=== PATIENT | female | born 1965 | race Two or more races ===

== ENCOUNTER → 2024-06-24 | Outpatient (CLI) | payer MEDICAID, SELFPAY ==
--- NOTE | 2024-06-24 09:15 | XR_ITS ---
Examination: Abdomen sonogram, complete Date and time of exam: June 24, 2024 0931 hours INDICATIONS: Cirrhosis diagnosis 2 years ago. Technique: Multiple real-time grayscale transabdominal sonographic images of the abdomen have been obtained. Findings: Absent gallbladder Common bile duct 0.4 cm Pancreatic head 3.2 cm Aorta not enlarged Liver 15.9 cm fatty infiltration no focal liver lesions Normal hepatopedal portal venous flow Patent IVC Right kidney 11.6 x 5.6 x 6.2 cm renal cortex 1.8 cm Left kidney 11.3 x 7.0 x 6.1 cm cortex 1.7 cm Mild bilateral renal parenchymal scar formation No hydronephrosis Spleen 13.4 cm IMPRESSION: Fatty liver no focal liver lesions Mild bilateral renal parenchymal scar formation Mild splenomegaly
[2024-06-24 09:31] LABS: Basophils # (Auto) 0.1 Thou/mm3 (0.0-0.2); Basophils % (Auto) 1 % (0-2.5); Eosinophils # (Auto) 0.2 Thou/mm3 (0.0-0.5); Eosinophils % (Auto) 2 % (0-10); Hematocrit 42.2 % (36.0-46.0); Hemoglobin 14.1 g/dL (12.0-16.0); Immature Granulocytes % (Auto) 0 % (0-0); Immature Granulocytes Auto 0.03 Thou/mm3 (0.00-0.00); Lymphocytes # (Auto) 1.9 Thou/mm3 (1.0-4.8); Lymphocytes % (Auto) 24 % (10-50); Mean Corpuscular HGB Conc 33.4 g/dl (31.0-37.0); Mean Corpuscular Hemoglobin 26.8 pg (25.0-35.0); Mean Corpuscular Volume 80 fL (80-100); Monocytes # (Auto) 0.8 Thou/mm3 (0.0-0.8); Monocytes % (Auto) 10 % (0-12); Neutrophils # (Auto) 5.2 Thou/mm3 (1.8-7.7); Neutrophils % (Auto) 64 % (37-80); Nucleated Red Blood Cell % 0 /100 WBC (0); Platelet Count 197 Thou/mm3 (140-440); RDW Standard Deviation 38.9 fL (36.4-46.3); Red Blood Count 5.27 Miln/mm3 (4.00-5.20); White Blood Count 8.3 Thou/mm3 (3.6-11.0)
[2024-06-24 09:33] LABS: Prothrombin Time 10.9 Seconds (9.0-12.2)
[2024-06-24 09:46] LABS: AFP Non-Pregnant < 1.30 ng/mL (<8.10)
[2024-06-24 09:51] LABS: Alanine Aminotransferase 33 U/L (10-49); Albumin, Serum 4.5 gm/dL (3.5-5.0); Alkaline Phosphatase 90 U/L (46-116); Aspartate Amino Transferase 22 U/L (0-34); Bilirubin,Direct 0.2 mg/dL (0.0-0.3); Bilirubin,Total 0.6 mg/dL (0.3-1.2); Sodium 137 mMol/L (136-145); Total Protein 7.1 gm/dL (5.7-8.2)
== END | disposition home or self-care (01) ==
LOC: CDIM 08:44 → COPL 08:47
PROVIDERS: PCP Family Medicine; Referring Provider Internal Medicine Gastroenterology; Visit Provider Radiology Diagnostic Radiology
DX: K76.0 Fatty (change of) liver, not elsewhere classified (principal); N28.89 Other specified disorders of kidney and ureter; R16.1 Splenomegaly, not elsewhere classified; R18.8 Other ascites; K74.60 Unspecified cirrhosis of liver
CPT/HCPCS: 36415; 76700; 80076; 82105; 83735; 84295; 85025; 85610

== ENCOUNTER → 2024-10-01 | Outpatient (CLI) | payer MEDICAID, SELFPAY ==
[2024-09-28 13:23] LABS: Blood Urea Nitrogen 11 mg/dL (9-23); Creatinine (Component) 0.8 mg/dL (0.6-1.3); eGFR > 60 See Note
--- NOTE | 2024-10-01 11:00 | XR_ITS ---
Examination: CT abdomen, without intravenous contrast. CT pelvis, without intravenous contrast. CT abdomen, with intravenous contrast. CT pelvis, with intravenous contrast. 2-D sagittal coronal reconstructions. Date and time of exam:October 01, 2024 1142 hours Comparison May 20, 2024 INDICATIONS: Right lower abdominal pain beginning one week ago CTDI: vol (mGy) 35.9 DLP: (mGycm) 2464 Technique: Multiple 3.0 axial images of the abdomen and pelvis without intravenous contrast, 3.0 mm slice thickness. Multiple 3.0 postcontrast images abdomen and pelvis also obtained, post intravenous injection 60 cc [id number] 2-D sagittal and coronal reconstructions. Low dose protocols were performed. One or more of the following dose reduction techniques were used; automated exposure control, adjustment of the mA and/or KV according to patient size, use of iterative reconstruction technique. Findings: Diffuse fatty infiltration throughout the liver, no focal liver lesions Absent gallbladder Spleen is not enlarged No pancreatic or adrenal mass No renal or ureteral calculi, no hydronephrosis Aorta normal size Normal appendix No bowel obstruction No diverticulitis Absent uterus No adnexal mass No bladder mass or bladder calculi Moderate osteopenia IMPRESSION: Fatty liver No renal or ureteral calculi, no hydronephrosis Normal appendix No bowel obstruction diverticulitis or free air
== END | disposition home or self-care (01) ==
LOC: SCAT 10:13
PROVIDERS: PCP Nurse Practitioner Family; Referring Provider Internal Medicine Gastroenterology; Visit Provider Internal Medicine Gastroenterology
DX: K76.0 Fatty (change of) liver, not elsewhere classified (principal); R10.11 Right upper quadrant pain; R10.31 Right lower quadrant pain; K21.9 Gastro-esophageal reflux disease without esophagitis
CPT/HCPCS: 36415; 74178; 82565; 84520; A4649; Q9967

== ENCOUNTER 2025-02-11 19:07 | Emergency (ER) | payer MEDICAID, SELFPAY ==
[2025-02-11 19:56] VITALS: BP 101/69; PULSE 96; RESP 18; TEMP 37; O2SAT 97
--- NOTE | 2025-02-11 20:08 | EDRME_ITS ---
Rapid Medical Screening Exam [facility] Arrival date/time: 02/11/25 19:07 59F with history of cholecystectomy, HTN, and DM presents to ED with 2 days of lower ab/pelvic pain that radiates to back and N/V. Patient denies diarrhea, and dysuria/hematuria. Patient states this doesn't feel like her gastritis. Chief Complaint: Nausea/Vomiting/Diarrhea Vital signs: Vital Signs Temperature 98.6 F 02/11/25 19:56 Pulse Rate 96 02/11/25 19:56 Respiratory Rate 18 02/11/25 19:56 Blood Pressure 101/69 02/11/25 19:56 Pulse Oximetry (%) 97 02/11/25 19:56 Oxygen Delivery Method Room Air 02/11/25 19:56
[2025-02-11] MEDS: ONDANSETRON ODT 4 MG TABRAP PO (20:13)
[2025-02-11] MEDS: NAPROXEN 250 MG TABLET 500 MG PO (20:25)
[2025-02-11 20:52] LABS: Basophils # (Auto) 0.1 Thou/mm3 (0.0-0.2); Basophils % (Auto) 1 % (0-2.5); Eosinophils # (Auto) 0.1 Thou/mm3 (0.0-0.5); Eosinophils % (Auto) 2 % (0-10); Hematocrit 45.6 % (36.0-46.0); Hemoglobin 15.8 g/dL (12.0-16.0); Immature Granulocytes % (Auto) 0 % (0-0); Immature Granulocytes Auto 0.03 Thou/mm3 (0.00-0.00); Lymphocytes # (Auto) 2.8 Thou/mm3 (1.0-4.8); Lymphocytes % (Auto) 30 % (10-50); Mean Corpuscular HGB Conc 34.6 g/dl (31.0-37.0); Mean Corpuscular Hemoglobin 27.7 pg (25.0-35.0); Mean Corpuscular Volume 80 fL (80-100); Monocytes % (Auto) 10 % (0-12); Neutrophils # (Auto) 5.2 Thou/mm3 (1.8-7.7); Neutrophils % (Auto) 57 % (37-80); Nucleated Red Blood Cell % 0 /100 WBC (0); Platelet Count 240 Thou/mm3 (140-440); RDW Standard Deviation 37.6 fL (36.4-46.3); Red Blood Count 5.71 Miln/mm3 (4.00-5.20); White Blood Count 9.2 Thou/mm3 (3.6-11.0)
[2025-02-11 20:56] LABS: Collection Type, Urine Clean Catch
[2025-02-11 21:06] LABS: Alanine Aminotransferase 44 U/L (10-49); Albumin, Serum 4.7 gm/dL (3.5-5.0); Albumin/Globulin Ratio 1.9 (1.2-2.2); Alkaline Phosphatase 71 U/L (46-116); Anion Gap 10 (7-16); Aspartate Amino Transferase 38 U/L (0-34); BUN/Creatinine Ratio 9 Ratio (12-20); Bilirubin,Total 0.6 mg/dL (0.3-1.2); Blood Urea Nitrogen 11 mg/dL (9-23); Carbon Dioxide 28.6 mMol/L (20.0-31.0); Chloride 98 mMol/L (98-107); Creatinine (Component) 1.2 mg/dL (0.6-1.3); Globulin 2.5 gm/dL (2.3-3.5); Glucose 99 mg/dL (74-106); Lipase 60 U/L (12-53); Osmolality,Calculated 273 (275-295); Sodium 137 mMol/L (136-145); Total Protein 7.2 gm/dL (5.7-8.2); eGFR 52 See Note
[2025-02-11 21:31] LABS: Bacteria,Urine Rare; Bilirubin,Urine Negative (Negative); Blood,Urine Negative (Negative); Clarity,Urine Turbid (Clear/Hazy); Color,Urine Yellow (Lt Yel-Yel); Culture Indicated,Urine Contaminated; Glucose, Urine 4+ (Negative); Hyaline Casts,Urine 1 /hpf (0-1); Ketones,Urine Negative (Negative); Leukocyte Esterase,Urine Positive (Negative); Nitrite,Urine Negative (Negative); Protein,Urine Trace (Neg - Trace); RBC,Urine 1 /hpf (0-3); Specific Gravity,Urine 1.027 (1.001-1.035); Squamous Epithelial Cell,Urine 26 /hpf (0-5); WBC,Urine 15 /hpf (0-5)
== END 2025-02-12 01:30 | disposition left against medical advice (07) ==
LOC: SERX 20:45
PROVIDERS: Physician Assistant; Emergency Provider Emergency Medicine; PCP Internal Medicine
DX: R11.2 Nausea with vomiting, unspecified (principal); R19.7 Diarrhea, unspecified; R10.2 Pelvic and perineal pain; Z53.29 Procedure and treatment not carried out because of patient's decision for other reasons
CPT/HCPCS: 36415; 80053; 81001; 83690; 85025; 99281; Q0162; A9270

== ENCOUNTER 2025-02-26 19:44 | Emergency (ER) | payer MEDICAID, SELFPAY ==
[2025-02-26 20:28] VITALS: BP 119/81; PULSE 75; RESP 18; TEMP 37.3; O2SAT 95
--- NOTE | 2025-02-26 20:56 | EDRME_ITS ---
<Statement entered by Richa Lim MD - 02/27/25 21:41> As co-signing physician, I was present and available for consult prn. I concur with the plan and care as documented by the midlevel provider. Rapid Medical Screening Exam RME Arrival date/time: 02/26/25 19:44 Chief Complaint: Abdominal Pain Time Seen by Provider: 02/26/25 20:48 Vital signs: Vital Signs Temperature 99.2 F 02/26/25 20:28 Pulse Rate 75 02/26/25 20:28 Respiratory Rate 18 02/26/25 20:28 Blood Pressure 119/81 02/26/25 20:28 Pulse Oximetry (%) 95 02/26/25 20:28 Oxygen Delivery Method Room Air 02/26/25 20:28 RME Narrative: 59-year-old female with a past medical history of diabetes and hypertension, as well as history of cholecystectomy, presents to the ED with complaint of epigastric abdominal pain as well as nausea, vomiting, diarrhea since yesterday. She has vomited twice today after she attempted to eat. She is unable to keep anything down. She had 3 bouts of diarrhea yesterday and 1 bout today. She denies any melena. She denies any fever or chills, cough or upper respiratory complaints. She denies any dysuria, frequency or flank pain. She has had this pain before but it goes away on its own. I have greeted and performed a focused initial assessment of this patient. A comprehensive ED assessment and evaluation of the patient, analysis of all test results, and completion of the medical decision making process will be conducted by additional ED providers.
--- NOTE | 2025-02-26 21:01 | XR_ITS ---
Examination: Abdomen sonogram, Limited Date and time of exam: February 26, 2025 2142 hours INDICATIONS: Epigastric pain today, history cholecystectomy Technique: Real-time fu scale transabdominal sonographic images of the upper abdomen obtained. Findings: Absent gallbladder Technologist describes mass in the gallbladder fossa 5 x 3.8 cm which is not well demonstrated on the images Common bile duct 0.9 cm no stones Pancreatic head 3.6 cm Liver 16.8 cm smooth contour Normal hepatopedal portal venous flow Patent IVC IMPRESSION: Technologist describes a mass in the gallbladder fossa which is not well demonstrated on these images
[2025-02-26] MEDS: ONDANSETRON ODT 4 MG TABRAP PO (21:07)
[2025-02-26 21:18] LABS: Basophils # (Auto) 0.0 Thou/mm3 (0.0-0.2); Basophils % (Auto) 0 % (0-2.5); Eosinophils # (Auto) 0.1 Thou/mm3 (0.0-0.5); Eosinophils % (Auto) 2 % (0-10); Hematocrit 42.7 % (36.0-46.0); Hemoglobin 15.3 g/dL (12.0-16.0); Immature Granulocytes Auto 0.07 Thou/mm3 (0.00-0.00); Lymphocytes # (Auto) 1.7 Thou/mm3 (1.0-4.8); Lymphocytes % (Auto) 19 % (10-50); Mean Corpuscular HGB Conc 35.8 g/dl (31.0-37.0); Mean Corpuscular Hemoglobin 27.3 pg (25.0-35.0); Mean Corpuscular Volume 76 fL (80-100); Monocytes # (Auto) 0.9 Thou/mm3 (0.0-0.8); Monocytes % (Auto) 10 % (0-12); Neutrophils # (Auto) 6.3 Thou/mm3 (1.8-7.7); Neutrophils % (Auto) 69 % (37-80); Nucleated Red Blood Cell # 0.00 Thou/mm3 (0.00-0.00); Nucleated Red Blood Cell % 0 /100 WBC (0); Platelet Count 231 Thou/mm3 (140-440); RDW Standard Deviation 35.6 fL (36.4-46.3); Red Blood Count 5.61 Miln/mm3 (4.00-5.20); White Blood Count 9.1 Thou/mm3 (3.6-11.0)
[2025-02-26 21:31] LABS: Collection Type, Urine Clean Catch
[2025-02-26 21:38] LABS: Bacteria,Urine 1+; Bilirubin,Urine Negative (Negative); Blood,Urine Trace (Negative); Clarity,Urine Clear (Clear/Hazy); Color,Urine Lt-Yellow (Lt Yel-Yel); Glucose, Urine 3+ (Negative); Ketones,Urine Negative (Negative); Leukocyte Esterase,Urine Positive (Negative); Nitrite,Urine Negative (Negative); PH,Urine 6.0 (5.0-7.0); Protein,Urine Negative (Neg - Trace); RBC,Urine 12 /hpf (0-3); Specific Gravity,Urine 1.007 (1.001-1.035); Squamous Epithelial Cell,Urine 12 /hpf (0-5); Urobilinogen,Urine Negative mg/dL (0.0-1.0); WBC,Urine 17 /hpf (0-5)
[2025-02-26 22:33] LABS: Alanine Aminotransferase 53 U/L (10-49); Albumin, Serum 4.8 gm/dL (3.5-5.0); Albumin/Globulin Ratio 1.8 (1.2-2.2); Alkaline Phosphatase 77 U/L (46-116); Anion Gap 10 (7-16); Aspartate Amino Transferase 50 U/L (0-34); BUN/Creatinine Ratio 7 Ratio (12-20); Bilirubin,Total 0.8 mg/dL (0.3-1.2); Blood Urea Nitrogen 7 mg/dL (9-23); Calcium 9.7 mg/dL (8.3-10.6); Calcium (Corrected) 9.7 mg/dL (8.5-10.1); Carbon Dioxide 27.3 mMol/L (20.0-31.0); Chloride 102 mMol/L (98-107); Creatinine (Component) 1.0 mg/dL (0.6-1.3); Globulin 2.7 gm/dL (2.3-3.5); Glucose 109 mg/dL (74-106); Lipase 46 U/L (12-53); Magnesium 1.8 mg/dL (1.6-2.6); Osmolality,Calculated 276 (275-295); Phosphorous 3.0 mg/dL (2.4-5.1); Potassium 3.7 mMol/L (3.4-5.1); Sodium 139 mMol/L (136-145); Total Protein 7.5 gm/dL (5.7-8.2); eGFR > 60 See Note
[2025-02-26 23:00] VITALS: BP 107/71; PULSE 82; RESP 16; TEMP 36.9; O2SAT 96
--- NOTE | 2025-02-26 23:07 | EDNOTE_ITS ---
ED Abdominal Pain RME/HPI General Chief Complaint: Abdominal Pain Stated complaint: ABD PAIN,N/V/D Time seen by provider: 02/26/25 20:48 Arrival date/time: 02/26/25 19:44 RME / HPI RME / HPI narrative: 59-year-old female with a past medical history of diabetes and hypertension, as well as history of cholecystectomy, presents to the ED with complaint of epigastric abdominal pain as well as nausea, vomiting, diarrhea since yesterday. She has vomited twice today after she attempted to eat. She is unable to keep anything down. She had 3 bouts of diarrhea yesterday and 1 bout today. She denies any melena. She denies any fever or chills, cough or upper respiratory complaints. She denies any dysuria, frequency or flank pain. She has had this pain before but it goes away on its own. I have greeted and performed a focused initial assessment of this patient. A comprehensive ED assessment and evaluation of the patient, analysis of all test results, and completion of the medical decision making process will be conducted by additional ED providers. DR. JEAN-BAPTISTE MAIN ED EVALUATION: 59 y/o female with Hx of Cirrhosis, Gall Bladder Disease, Obesity, and Gastritis presents to ED c/o intermittent epigastric abdominal pain, nausea, vomiting, and diarrhea x 1 day. Patient states that immediately after eating anything she gets the urge to use the restroom. Denies vomiting blood. Denies bloody or tarry stool. Patient has an endoscopy scheduled for 02/28/[address] [place] [address] Mott. Related Data Home Medications ?Medication ?Instructions ?Recorded ?Confirmed pioglitazone 30 mg tablet (Actos) 15 mg PO QDAY #0 tab s 08/09/16 01/05/18 losartan 50 mg tablet 25 mg PO BID 11/27/17 Previous Rx's ?Medication ?Instructions ?Recorded furosemide 20 mg tablet (Lasix) 20 mg PO QAM Fluid ove rload #7 tabs 11/04/22 potassium chloride 10 mEq 10 meq PO QDAY #7 tabs 11/04 tablet,extended release nirmatrelvir 300 mg (150 mg See Rx Instructions PO .CO MPLEX 06/07/23 x2)-ritonavir 100 mg tablet,dose #30 tabs pack (Paxlovid) ibuprofen 800 mg tablet 800 mg PO TID PRN pain #30 t abs 07/11/23 ondansetron 4 mg disintegrating 4 mg PO Q8H PRN nausea and 02/08/24 tablet vomiting #20 tabs Allergies Allergy/AdvReac Type Severity Reaction Status Date / Time morphine Allergy Severe Hives Verified 02/26/25 19:45 Review of Systems Review of Systems Systems Reviewed: All systems reviewed, normal except as documented Past Medical History Past Medical History CARDIAC: Positive Cardiac Disorders, Hypertension and Hypotension GASTROINTESTINAL: Positive Gastrointestinal Disorders (Gastritis), Cirrhosis, Gall Bladder Disease and Obesity REPRODUCTIVE: Positive Previous Pregnancies ENDOCRINE: Positive Endocrine Disorders and Diabetes Mellitus Type 2 PSYCHO/SOCIAL: Positive Anxiety Family History FAMILY HISTORY: Positive Family Cardiac Disorders Surgical History SURGICAL: Positive Hysterectomy and Section ED Exam Narrative Physical exam: GENERAL APPEARANCE: alert and oriented x 4, well-developed, well-nourished, no acute distress VITALS: All vitals were reviewed and the pulse ox is 96% on room air, which is normal according to my interpretation. HEENT: Normocephalic, atraumatic; pupils equal, round, reactive to light; EOMI; mucous membranes pink, moist; oropharynx clear NECK: Supple LUNGS: CTABL; no wheezes, no rales, no rhonchi HEART: Regular rate, regular rhythm; normal S1, S2; no murmurs ABDOMEN: non distended; normal BS; soft, mild epigastric tenderness, no guarding, no rebound; no masses, no organomegaly, no hernia BACK: no CVA tenderness EXTREMITIES: atraumatic; no edema NEUROLOGIC: awake; alert and oriented x4; cranial nerves II-XII grossly intact; no focal sensory or motor deficits PSYCHIATRIC: appropriate mood and affect SKIN: warm, dry, normal color; no rashes Course Quality Measures none Orders Category Date Time Status NPO STAT Care 02/26/25 20:59 Active US abdomen limited Stat Exams 02/26/25 21:01 Completed Amylase Stat Lab 02/26/25 21:10 Completed CBC Stat Lab 02/26/25 21:10 Completed Comprehensive Metabolic Panel Stat Lab 02/26/25 21:10 Completed Drug Screen,Urine Stat Lab 02/26/25 21:18 Completed Lipase Stat Lab 02/26/25 21:10 Completed Magnesium Stat Lab 02/26/25 21:10 Completed Phosphorous Stat Lab 02/26/25 21:10 Completed Urinalysis Stat Lab 02/26/25 21:18 Completed Urine Culture Stat Lab 02/26/25 21:18 Received Lidocaine 2% Viscous [Xylocaine 2% Viscous] Med 02/26/25 23:12 Discontinued 15 ml PO X1 ONE Ondansetron Odt [Zofran Odt] Med 02/26/25 20:59 Discontinued 4 mg PO X1 ONE mg Hyd/Al Hyd/Joselo Susp [Maalox Susp] Med 02/26/25 23:12 Discontinued 30 ml PO X1 ONE Reevaluation(s) Reevaluation #1: Patient states the pain medication helped. States she feels better and is ready to go home. Time: 23:58 Vital Signs Vital signs: Vital Signs Temperature 99.2 F 02/26/25 20:28 Pulse Rate 75 02/26/25 20:28 Respiratory Rate 18 02/26/25 20:28 Blood Pressure 119/81 02/26/25 20:28 Pulse Oximetry (%) 95 02/26/25 20:28 Oxygen Delivery Method Room Air 02/26/25 20:28 Abdominal Pain MDM MDM Narrative MDM Narrative:: Scribe Attestation: Selin Dobson, am scribing for and in the presence of Dr. Jean-Baptiste. Provider Notation: Although this document has been carefully reviewed, there may still be some phonetic and other typographical errors.? These errors are purely grammatical due to imperfections in the software program and should not be construed in any way to? compromise the substance of the patient's medical care during this visit. Patient data External records reviewed:: [facility] previous records (Reviewed prior ED records from 02/11/25. Patient was seen for Nausea with vomiting, unspecified.) Clinical information provided by:: patient Social determinants that could affect healthcare access:: none Patient has the following chronic illnesses:: Hypertension, Hypotension, Cirrhosis, Gall Bladder Disease, Obesity, Diabetes Mellitus Type 2, Anxiety How is presenting disease/condition affected by chronic disease/condition?: exacerbated by Evaluation data The following diagnostics were reviewed and interpreted by me:: lab results and radiology exam(s) Lab and/or radiology exams considered but not ordered:: None Interpretation Summary: RADIOLOGY Abdomen US: Findings: Absent gallbladder Technologist describes mass in the gallbladder fossa 5 x 3.8 cm which is not well demonstrated on the images Common bile duct 0.9 cm no stones Pancreatic head 3.6 cm Liver 16.8 cm smooth contour Normal hepatopedal portal venous flow Patent IVC IMPRESSION: Technologist describes a mass in the gallbladder fossa which is not well demonstrated on these images Medications / Prescriptions Medications or Prescriptions considered but not ordered:: None Medication administrations:: Medication Administration History Discontinued Medications Al Hydrox/Mg Hydrox/Simethicone (Mg Hyd/Al Hyd/Joselo (Maalox Reg) Susp 30 Ml Udc) 30 ml PO X1 ONE Stop: 02/26/25 23:13 Last Admin: 02/26/25 23:36 Dose: 30 ml Documented By: CCT Lidocaine HCl (Lidocaine Viscous 2% 15 Ml Udc) 15 ml PO X1 ONE Stop: 02/26/25 23:13 Last Admin: 02/26/25 23:36 Dose: 15 ml Documented By: CCT Ondansetron HCl (Ondansetron Odt 4 Mg Tabrap) 4 mg PO X1 ONE; Protocol Stop: 02/26/25 21:00 Last Admin: 02/26/25 21:07 Dose: 4 mg Documented By: See above Consultations Consultation(s) initiated? (list below): No Diagnosis Differential diagnosis abdominal pain: abdominal pain, acute appendicitis, calculus of kidney, constipation, diverticulitis, gastroenteritis, pancreatitis, small bowel obstruction and other (Fatty Liver, GERD, Gastritis) Most likely diagnosis given after review of the tests above:: Gastritis Admission Indicated Admission indicated?: not indicated Explain why admission is indicated or not indicated:: Patient does not meet admission criteria. Admission Request Was there a request for admission?: No Disposition Plan Disposition Plan: Discharge Discharge Attestation Discharge Attestation: The patient and all family members were given an opportunity to ask questions and understood the discharge instructions. Discharge instructions specifically effects, indications for sooner follow up or return to the emergency department, and the expected course of current diagnosis. Patient condition: Stable Discharge Plan Plan Patient Disposition: HOME (Self Care) Prescriptions/Referrals Prescriptions/Med Rec: No Action pioglitazone [Actos] 15 MG tablet 15 mg PO QDAY Qty: 0 losartan 50 mg Tablet 25 mg PO BID ibuprofen 800 mg tablet 800 mg PO TID PRN (Reason: pain) Qty: 30 0RF ondansetron 4 mg tablet,disintegrating 4 mg PO Q8H PRN (Reason: nausea and vomiting) Qty: 20 0RF furosemide [Lasix] 20 mg tablet 20 mg PO QAM Qty: 7 0RF potassium chloride 10 mEq tablet extended release 10 meq PO QDAY Qty: 7 0RF Paxlovid 300 mg (150 mg x 2)-100 mg tablets,dose pack See Rx Instructions .ROUTE .COMPLEX Qty: 30 0RF Rx Instructions: take TWO 150 mg tablets of nirmatrelvir with ONE 100 mg tablet of ritonavir twice daily for 5 days Referrals: No Primary/Family,Physician [Primary Care Provider] - In 1 week Problem List Clinical Impression: Gastritis Patient/Caregiver Discharge Instructions Education Materials: ED Gastritis (Adult) Print Language: Icelandic Stand Alone Forms: Katie Award Info., Patient Portal Info Letter
[2025-02-26] MEDS: MG HYD/AL HYD/SIME (Maalox Reg) SUSP 30 ML UDC PO (23:36)
[2025-02-26] MEDS: LIDOCAINE VISCOUS 2% 15 ML UDC PO (23:36)
[2025-02-27] LABS: Amphetamine/Methamp Scrn,U Negative (Negative); Barbiturate Screen,Urine Negative (Negative); Benzodiazepines Screen,Urine Negative (Negative); Benzoylecgonine Screen, Ur Negative (Negative); Fentanyl Screen,Urine Negative (Negative); Opiate Screen,Urine Negative (Negative); THC Screen,Urine Negative (Negative)
[2025-02-27 00:05] LABS: Amylase 60 U/L (30-118)
[2025-02-27 00:20] VITALS: BP 110/86; PULSE 88; RESP 16; TEMP 36.9; O2SAT 96
== END 2025-02-27 00:20 | disposition home or self-care (01) ==
PROVIDERS: Physician Assistant; Emergency Provider Emergency Medicine
DX: K29.70 Gastritis, unspecified, without bleeding (principal); K82.8 Other specified diseases of gallbladder
CPT/HCPCS: 36415; 76705; 80053; 80307; 81001; 82150; 83690; 83735; 84100; 85025; 87086; 99284; J3490; Q0162; A9270

== ENCOUNTER 2025-04-08 18:06 | Emergency (ER) | payer MEDICAID, SELFPAY ==
[2025-04-08 18:08] VITALS: BMI 34.4
[2025-04-08 19:32] VITALS: BP 106/78; PULSE 75; RESP 18; TEMP 36.8; O2SAT 95
--- NOTE | 2025-04-08 20:15 | EKG_ITS ---
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1965 Requested By: Tank Bo Order Number: [id number] Reading MD: Tank Bo Measurements Intervals [place] Rate: 82 P: -65 ID: [id number] QRS: -46 QRSD: 86 T: 42 QT: 359 QTc: 419 Interpretive Statements SINUS RHYTHM LOW QRS VOLTAGE [QRS DEFLECTION < 0.5/1.0 mV IN LIMB/CHEST LEADS] INFERIOR MYOCARDIAL INFARCTION , PROBABLY OLD [40+ ms Q WAVE AND/OR ST/T ABNORMALITY IN II/aVF] ANTEROLATERAL MYOCARDIAL INFARCTION , PROBABLY OLD [40+ ms Q WAVE IN I/aVL/V3-V6] Compared to ECG 07/11/2023 13:04:42 Low QRS voltage now present Myocardial infarct finding still present /store/S0/[id number].pdf
--- NOTE | 2025-04-08 20:51 | EDNOTE_ITS ---
ED Weakness RME/HPI General Chief complaint: Weakness Stated complaint: WEAKNESS AND SHIVERING TODAY x 30 MINUTES Time Seen by Provider: 04/08/25 20:50 Arrival date/time: 04/08/25 18:06 59F with history of cholecystectomy, HTN, and DM presents to ED with 1 hour of generalized fatigue and shivering. Patient states no recent changes in meds except started Ozempic 2 months ago (no recent dose changes). Patient threw up yesterday and hasn't been eating as much. Patient took her normal meds today. Patient is not currently nauseous. Limitations: no limitations Related Data Home Medications ?Medication ?Instructions ?Recorded ?Confirmed pioglitazone 30 mg tablet (Actos) 15 mg PO QDAY #0 tab s 08/09/16 01/05/18 losartan 50 mg tablet 25 mg PO BID 11/27/17 Previous Rx's ?Medication ?Instructions ?Recorded furosemide 20 mg tablet (Lasix) 20 mg PO QAM Fluid ove rload #7 tabs 11/04/22 potassium chloride 10 mEq 10 meq PO QDAY #7 tabs 11/04 tablet,extended release nirmatrelvir 300 mg (150 mg See Rx Instructions PO .CO MPLEX 06/07/23 x2)-ritonavir 100 mg tablet,dose #30 tabs pack (Paxlovid) ibuprofen 800 mg tablet 800 mg PO TID PRN pain #30 t abs 07/11/23 ondansetron 4 mg disintegrating 4 mg PO Q8H PRN nausea and 02/08/24 tablet vomiting #20 tabs Allergies Allergy/AdvReac Type Severity Reaction Status Date / Time morphine Allergy Severe Hives Verified 04/08/25 18:09 Review of Systems Review of Systems Systems Reviewed: All systems reviewed, normal except as documented Constitutional Constitutional: Reports system reviewed and no additional complaints, except as documented, Reports as per HPI, Denies fever(s), Denies headache(s) and Reports weakness ENT Ears, Nose, Mouth, and Throat: Denies disequilibrium and Denies headache(s) Cardiovascular Cardiovascular: Reports system reviewed and no additional complaints, except as documented, Denies chest pain and Denies dyspnea Respiratory Respiratory: Reports system reviewed and no additional complaints, except as documented, Denies cough and Denies dyspnea Gastrointestinal Gastrointestinal: Reports system reviewed and no additional complaints, except as documented, Denies abdominal pain, Denies nausea and Denies vomiting Neurologic Neurologic: Reports system reviewed and no additional complaints, except as documented, Denies confusion, Denies disequilibrium, Denies headache(s) and Reports weakness Psychiatric Psychiatric: Denies confusion Past Medical History Past Medical History NEUROLOGIC: Negative Neurological Disorders or Seizures CARDIAC: Positive Cardiac Disorders, Hypertension and Hypotension; Negative Congestive Heart Failure RESPIRATORY: Negative Chronic Obstructive Pulmonary Disease (COPD) or Asthma GASTROINTESTINAL: Positive Gastrointestinal Disorders (Gastritis), Cirrhosis, Gall Bladder Disease and Obesity GENITOURINARY: Negative Renal Disease REPRODUCTIVE: Positive Previous Pregnancies MUSCULOSKELETAL: Negative Musculoskeletal Disorders ENDOCRINE: Positive Endocrine Disorders and Diabetes Mellitus Type 2; Negative Diabetes Mellitus Type 1 HEMATOLOGIC: Negative Blood Disorders or Sickle Cell Disease PSYCHO/SOCIAL: Positive Anxiety OTHER HISTORY: Negative Autoimmune Disease, Blood Transfusions, Blood Transfusion Reaction, Anesthesia Reactions or Cancer Family History FAMILY HISTORY: Positive Family Cardiac Disorders Surgical History SURGICAL: Positive Hysterectomy and Section Social History SMOKING STATUS: Never smoker ED Exam General Limitations: Present no limitations General appearance: Present alert and in no apparent distress Head Head exam: Present atraumatic Eye Eye exam: Present normal appearance, PERRL and EOMI ENT ENT exam: Present normal exam, normal oropharynx and mucous membranes moist Neck Neck exam: Present normal inspection, full ROM and trachea midline Chest Chest inspection: Present normal inspection and symmetric chest wall rise Respiratory Respiratory exam: Present normal lung sounds bilaterally Cardiovascular Cardiovascular exam: Present regular rate, normal rhythm and normal heart sounds Abdominal Exam Abdominal exam: Present soft and normal bowel sounds Extremities Exam Extremities exam: Present normal inspection and full ROM Back Exam Back exam: Present normal inspection and full ROM Neurological Exam Neurological exam: Present alert, oriented X3 and CN II-XII intact Psychiatric Psychiatric exam: Present normal affect and normal mood Skin Skin exam: Present warm, dry, intact and normal color Course Quality Measures none Orders Category Date Time Status Blood glucose [Bedside Blood Glucose] NOW Care 04/08/25 20:15 Completed EKG (ED ONLY) *Do not use* NOW Care 04/08/25 20:15 Completed EKG (ED Only) Stat Exams 04/08/25 20:15 Draft Vital Signs Vital signs: Vital Signs Temperature 98.3 F 04/08/25 19:32 Pulse Rate 75 04/08/25 19:32 Respiratory Rate 18 04/08/25 19:32 Blood Pressure 106/78 04/08/25 19:32 Pulse Oximetry (%) 95 04/08/25 19:32 Oxygen Delivery Method Room Air 04/08/25 19:32 O2 at 95% on RA and WNLs Weakness MDM Narrative MDM Narrative:: 59F with history of cholecystectomy, HTN, and DM presents to ED with 1 hour of generalized fatigue and shivering. Patient states no recent changes in meds except started Ozempic 2 months ago (no recent dose changes). Patient threw up yesterday and hasn't been eating as much. Patient took her normal meds today. Patient is not currently nauseous. Physical exam reveals tired-appearing individual. Speech normal. However, patient is afebrile, calm, and alert. EKG is NSR. Initial BS 36. Because patient was alert and able to talk, patient was given some juice and crackers. Patient has been eating and repeat BS is 127. Patient felt better. Repeat BS 150. 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 Patient data External records reviewed:: [facility] previous records Clinical information provided by:: patient Social determinants that could affect healthcare access:: none Patient has the following chronic illnesses:: cholecystectomy, HTN, and DM How is presenting disease/condition affected by chronic disease/condition?: exacerbated by Evaluation data The following diagnostics were reviewed and interpreted by me:: lab results and EKG tracing(s) Lab and/or radiology exams considered but not ordered:: ordered Interpretation Summary: above Medications / Prescriptions Medications or Prescriptions considered but not ordered:: not ordered Medication administrations:: n/a Consultations Consultation(s) initiated? (list below): No Diagnosis Weakness Differential Diagnosis: acute myocardial infarction, anemia, hypoglycemia, hypothyroidism, rhabdomyolysis, sepsis and dehydration Most likely diagnosis given after review of the tests above:: hypoglycemia Admission Indicated Admission indicated?: not indicated Admission Request Was there a request for admission?: No Disposition Plan Disposition Plan: Discharge Discharge Attestation Discharge Attestation: The patient and all family members were given an opportunity to ask questions and understood the discharge instructions. Discharge instructions specifically effects, indications for sooner follow up or return to the emergency department, and the expected course of current diagnosis. Patient condition: Stable Discharge Plan Plan Patient Disposition: HOME (Self Care) Discharge Disposition comment: Stable Prescriptions/Referrals Prescriptions/Med Rec: No Action pioglitazone [Actos] 15 MG tablet 15 mg PO QDAY Qty: 0 losartan 50 mg Tablet 25 mg PO BID ibuprofen 800 mg tablet 800 mg PO TID PRN (Reason: pain) Qty: 30 0RF ondansetron 4 mg tablet,disintegrating 4 mg PO Q8H PRN (Reason: nausea and vomiting) Qty: 20 0RF furosemide [Lasix] 20 mg tablet 20 mg PO QAM Qty: 7 0RF potassium chloride 10 mEq tablet extended release 10 meq PO QDAY Qty: 7 0RF Paxlovid 300 mg (150 mg x 2)-100 mg tablets,dose pack See Rx Instructions .ROUTE .COMPLEX Qty: 30 0RF Rx Instructions: take TWO 150 mg tablets of nirmatrelvir with ONE 100 mg tablet of ritonavir twice daily for 5 days Problem List Clinical Impression: Hypoglycemia Patient/Caregiver Discharge Instructions Education Materials: Hypoglycemia Steps, ED Hypoglycemia Oral Diabetic ... Print Language: Yoruba Stand Alone Forms: Patient Portal Info Letter PA/ASSURANCE MANAGER INSURANCE Supervising Physician YEN/KRISTINA Supervising Physician: Dr. Boucher
[2025-04-08 22:06] VITALS: BP 110/72; PULSE 76; RESP 18; TEMP 36.8; O2SAT 98
== END 2025-04-08 22:10 | disposition home or self-care (01) ==
LOC: SERX 22:19
PROVIDERS: Emergency Provider Emergency Medicine
DX: E11.649 Type 2 diabetes mellitus with hypoglycemia without coma (principal); I10 Essential (primary) hypertension; Z79.85 Long-term (current) use of injectable non-insulin antidiabetic drugs; Z90.49 Acquired absence of other specified parts of digestive tract
CPT/HCPCS: 93005; 99283

== ENCOUNTER 2025-06-25 15:16 | Emergency (ER) | payer MEDICAID, SELFPAY ==
--- NOTE | 2025-06-25 15:21 | EKG_ITS ---
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
[2025-06-25 15:28] VITALS: BP 106/72; PULSE 81; RESP 20; TEMP 36.8; O2SAT 95
--- NOTE | 2025-06-25 15:32 | XR_ITS ---
Exam: Chest 1 view, AP Date and time of exam: 06/25/2025, 3:52 p.m. Comparison: 01/12/2024, INDICATION: Chest pain Findings: Normal heart size. No mediastinal adenopathy. No acute fracture No pulmonary edema or pneumonia. Impression: No active disease.
--- NOTE | 2025-06-25 15:33 | EDNOTE_ITS ---
ED Chest Pain RME/HPI General Chief Complaint: Chest Pain Stated Complaint: SOB, chest pain since 1200 Time Seen by Provider: 06/25/25 15:21 Arrival date/time: 06/25/25 15:16 59-year-old female patient with a significant history of hypertension, diabetes mellitus, leaky valve, came in for evaluation regarding left-sided chest pain. Onset of symptoms since 4 hours prior to ER visit sudden onset of left-sided chest pain, described as stabbing pain, severity mild. Denies any shortness of breath. Denies any radiation of the pain. Denies any other complaints. Patient is awaiting to be seen by [facility] regarding her leaky valve. Denies any swelling to the leg. Related Data Home Medications ?Medication ?Instructions ?Recorded ?Confirmed pioglitazone 30 mg tablet (Actos) 15 mg PO QDAY #0 tab s 08/09/16 01/05/18 losartan 50 mg tablet 25 mg PO BID 11/27/17 Previous Rx's ?Medication ?Instructions ?Recorded furosemide 20 mg tablet (Lasix) 20 mg PO QAM Fluid ove rload #7 tabs 11/04/22 potassium chloride 10 mEq 10 meq PO QDAY #7 tabs 11/04 tablet,extended release nirmatrelvir 300 mg (150 mg See Rx Instructions PO .CO MPLEX 06/07/23 x2)-ritonavir 100 mg tablet,dose #30 tabs pack (Paxlovid) ibuprofen 800 mg tablet 800 mg PO TID PRN pain #30 t abs 07/11/23 ondansetron 4 mg disintegrating 4 mg PO Q8H PRN nausea and 02/08/24 tablet vomiting #20 tabs pantoprazole 40 mg tablet,delayed 40 mg PO QDAY #20 ta bs 06/25/25 release (Protonix) Allergies Allergy/AdvReac Type Severity Reaction Status Date / Time morphine Allergy Severe Hives Verified 06/25/25 15:21 Review of Systems Review of Systems Narrative Review of Systems: Review of system reviewed and within normal limits except mentioned in HPI ED Exam Narrative Physical exam: VITAL SIGNS: Reviewed. GENERAL APPEARANCE: Alert and interactive, follows commands, no acute distress, HEAD AND FACE: Non-traumatic. ENT: PERRL, pink conjunctivitis, eyelid no trauma, Mucous membrane moist. NECK: Supple, nontender, no nuchal rigidity. CHEST: Left chest tenderness, no crepitus, no paradoxical movement, no retractions. LUNGS: Clear, well ventilated, symmetric, no rales, no wheezing, no ronchi, no stridor, good breath sounds bilaterally. HEART: Regular rate, regular rhythm, no murmur, no gallops. ABDOMEN: Soft, positive bowel sounds, nondistended, no guarding, nontender, no rebound, no masses, RECTAL: Deferred. GENITAL: Deferred. NEUROLOGICAL: Gross motor function intact sensory function intact, Appropriate for age. MUSCULOSKELETAL: low back nontender, full range of motion. EXTREMITIES: Nontender, full range of motion. SKIN: Color pink, dry, no rash, no lacerations, no abrasions, no contusions. LYMPHATICS: Deferred. Course Quality Measures none Orders Category Date Time Status EKG (ED ONLY) *Do not use* NOW Care 06/25/25 15:22 Completed EKG (ED Only) Stat Exams 06/25/25 15:21 Draft XR chest 1V Stat Exams 06/25/25 15:32 Completed B-Type Natriuretic Peptide Stat Lab 06/25/25 15:52 Completed CBC Stat Lab 06/25/25 15:52 Completed Comprehensive Metabolic Panel Stat Lab 06/25/25 15:52 Completed Partial Thromboplastin Time Stat Lab 06/25/25 15:52 Completed Prothrombin Time with INR Stat Lab 06/25/25 15:52 Completed Troponin I Stat Lab 06/25/25 15:52 Completed Aspirin Med 06/25/25 15:35 Discontinued 325 mg PO X1 ONE mg Hyd/Al Hyd/Joselo Susp [Maalox Susp] Med 06/25/25 15:32 Discontinued 30 ml PO X1 ONE Vital Signs Vital signs: Vital Signs Temperature 98.3 F 06/25/25 15:28 Pulse Rate 81 06/25/25 15:28 Respiratory Rate 20 06/25/25 15:28 Blood Pressure 106/72 06/25/25 15:28 Pulse Oximetry (%) 95 06/25/25 15:28 Oxygen Delivery Method Room Air 06/25/25 15:28 Chest Pain MDM Narrative MDM Narrative:: 06/25/25 15:16 59-year-old female patient with a significant history of hypertension, diabetes mellitus, leaky valve, came in for evaluation regarding left-sided chest pain. Onset of symptoms since 4 hours prior to ER visit sudden onset of left-sided chest pain, described as stabbing pain, severity mild. Denies any shortness of breath. Denies any radiation of the pain. Denies any other complaints. Patient is awaiting to be seen by [facility] regarding her leaky valve. Denies any swelling to the leg. Cardiac workup all came back unremarkable including normal troponin, I personally reviewed and interpreted the x-ray of this patient. There is no acute abnormalities found, no infiltrates no pneumothorax no hemothorax normal chest x-ray. Review of other structures was without significant abnormal findings also. I additionally reviewed the radiologist report and agree with the interpretation. EKG showed normal sinus rhythm, ventricular rate of 73 bpm, no ST segment elevation depression noted. Repeat troponin is not needed patient came in with chest pain that has been ongoing for more than 4 hours. Prior to discharge she is not having any pain. Stable for charged home I told her to continue follow- up with [facility] regarding her leaky valve. Patient data External records reviewed:: None Clinical information provided by:: patient Social determinants that could affect healthcare access:: none Patient has the following chronic illnesses:: History of leaky valve How is presenting disease/condition affected by chronic disease/condition?: exacerbated by Evaluation data The following diagnostics were reviewed and interpreted by me:: lab results, radiology exam(s) and EKG tracing(s) Lab and/or radiology exams considered but not ordered:: None Interpretation Summary: See results MDM Medications / Prescriptions Medications or Prescriptions considered but not ordered:: None Medication administrations:: Medication Administration History Discontinued Medications Al Hydrox/Mg Hydrox/Simethicone (Mg Hyd/Al Hyd/Joselo (Maalox Reg) Susp 30 Ml Udc) 30 ml PO X1 ONE Stop: 06/25/25 15:33 Last Admin: 06/25/25 16:47 Dose: 30 ml Documented By: BD Aspirin (Aspirin 325 Mg Tablet) 325 mg PO X1 ONE Stop: 06/25/25 15:36 Last Admin: 06/25/25 16:47 Dose: 325 mg Documented By: BD Aspirin Maalox Consultations Consultation(s) initiated? (list below): No Diagnosis Chest Pain Differential Diagnosis: pneumothorax and chest pain Most likely diagnosis given after review of the tests above:: Chest pain Admission Indicated Admission indicated?: not indicated Admission Request Was there a request for admission?: No Disposition Plan Disposition Plan: Discharge Discharge Attestation Discharge Attestation: The patient and all family members were given an opportunity to ask questions and understood the discharge instructions. Discharge instructions specifically effects, indications for sooner follow up or return to the emergency department, and the expected course of current diagnosis. Patient condition: Stable Discharge Plan Plan Patient Disposition: HOME (Self Care) Discharge Disposition comment: stable Prescriptions/Referrals Prescriptions/Med Rec: New pantoprazole [Protonix] 40 mg tablet,delayed release (DR/EC) 40 mg PO QDAY Qty: 20 0RF No Action pioglitazone [Actos] 15 MG tablet 15 mg PO QDAY Qty: 0 losartan 50 mg Tablet 25 mg PO BID ibuprofen 800 mg tablet 800 mg PO TID PRN (Reason: pain) Qty: 30 0RF ondansetron 4 mg tablet,disintegrating 4 mg PO Q8H PRN (Reason: nausea and vomiting) Qty: 20 0RF furosemide [Lasix] 20 mg tablet 20 mg PO QAM Qty: 7 0RF potassium chloride 10 mEq tablet extended release 10 meq PO QDAY Qty: 7 0RF Paxlovid 300 mg (150 mg x 2)-100 mg tablets,dose pack See Rx Instructions .ROUTE .COMPLEX Qty: 30 0RF Rx Instructions: take TWO 150 mg tablets of nirmatrelvir with ONE 100 mg tablet of ritonavir twice daily for 5 days Referrals: Jose J Enriquez MD [Primary Care Provider, Family Practice] - In 1 week Problem List Clinical Impression: Chest pain Patient/Caregiver Discharge Instructions Discharge Activity: activity as tolerated Education Materials: Understanding the Pain Response Additional Instructions: Thank you for the opportunity for serving you today. You are stable for discharged . You are advised to: Follow-up with your PCP in 1 to 2 days Return to ED for worsening of symptoms Increase oral fluids Take medication as prescribed Print Language: Indonesian Stand Alone Forms: Katie Award Info., Patient Portal Info Letter PA/KRISTINA Supervising Physician YEN/KRISTINA Supervising Physician: MD Leigh
[2025-06-25 16:10] LABS: Basophils # (Auto) 0.1 Thou/mm3 (0.0-0.2); Basophils % (Auto) 1 % (0-2.5); Eosinophils # (Auto) 0.2 Thou/mm3 (0.0-0.5); Eosinophils % (Auto) 2 % (0-10); Hematocrit 44.1 % (36.0-46.0); Hemoglobin 15.2 g/dL (12.0-16.0); Immature Granulocytes Auto 0.04 Thou/mm3 (0.00-0.00); Lymphocytes # (Auto) 1.9 Thou/mm3 (1.0-4.8); Lymphocytes % (Auto) 23 % (10-50); Mean Corpuscular HGB Conc 34.5 g/dl (31.0-37.0); Mean Corpuscular Hemoglobin 27.1 pg (25.0-35.0); Mean Corpuscular Volume 79 fL (80-100); Monocytes # (Auto) 0.7 Thou/mm3 (0.0-0.8); Monocytes % (Auto) 9 % (0-12); Neutrophils # (Auto) 5.2 Thou/mm3 (1.8-7.7); Neutrophils % (Auto) 65 % (37-80); Nucleated Red Blood Cell # 0.00 Thou/mm3 (0.00-0.00); Nucleated Red Blood Cell % 0 /100 WBC (0); Platelet Count 211 Thou/mm3 (140-440); RDW Standard Deviation 37.1 fL (36.4-46.3); Red Blood Count 5.60 Miln/mm3 (4.00-5.20); White Blood Count 8.0 Thou/mm3 (3.6-11.0)
[2025-06-25 16:27] LABS: B-Type Natriuretic Peptide < 20 pg/mL (0-100)
[2025-06-25 16:28] LABS: Alanine Aminotransferase 31 U/L (10-49); Albumin, Serum 4.9 gm/dL (3.5-5.0); Albumin/Globulin Ratio 2.0 (1.2-2.2); Alkaline Phosphatase 93 U/L (46-116); Anion Gap 9 (7-16); Aspartate Amino Transferase 31 U/L (0-34); BUN/Creatinine Ratio 7 Ratio (12-20); Bilirubin,Total 0.5 mg/dL (0.3-1.2); Blood Urea Nitrogen 8 mg/dL (9-23); Calcium 9.4 mg/dL (8.3-10.6); Calcium (Corrected) 9.4 mg/dL (8.5-10.1); Carbon Dioxide 25.7 mMol/L (20.0-31.0); Chloride 106 mMol/L (98-107); Creatinine (Component) 1.1 mg/dL (0.6-1.3); Globulin 2.4 gm/dL (2.3-3.5); Glucose 169 mg/dL (74-106); Osmolality,Calculated 283 (275-295); Potassium 4.1 mMol/L (3.4-5.1); Sodium 141 mMol/L (136-145); Total Protein 7.3 gm/dL (5.7-8.2); Troponin I < 0.002 ng/mL (0.0-0.045); eGFR 58 See Note
[2025-06-25 16:37] LABS: INR 1.0 (0.9-1.3); Partial Thromboplastin Time 28.2 Seconds (22.0-36.0); Prothrombin Time 10.3 Seconds (9.0-12.2)
[2025-06-25] MEDS: MG HYD/AL HYD/SIME (Maalox Reg) SUSP 30 ML UDC PO (16:47)
== END 2025-06-25 17:27 | disposition home or self-care (01) ==
PROVIDERS: Nurse Practitioner Family; Emergency Provider Emergency Medicine; PCP Family Medicine
DX: R07.9 Chest pain, unspecified (principal); E11.9 Type 2 diabetes mellitus without complications; I10 Essential (primary) hypertension
CPT/HCPCS: 36415; 71045; 80053; 83880; 84484; 85025; 85610; 85730; 93005; 99283; A9270

== ENCOUNTER 2025-07-18 15:26 | Emergency (ER) | payer MEDICAID, SELFPAY ==
[2025-07-18 15:27] VITALS: BMI 38.4
[2025-07-18 15:57] VITALS: BP 102/70; PULSE 79; RESP 16; TEMP 36.8; O2SAT 97
--- NOTE | 2025-07-18 16:04 | XR_ITS ---
Examination: Pelvic ultrasound, transabdominal, complete Technique: Transabdominal ultrasound of the pelvis performed using grayscale imaging Date and time of exam: July 18, 2025, 1716 hours INDICATIONS: Pelvic pain 1 year FINDINGS: Absent uterus Ovaries not visualized Abundant bowel gas IMPRESSION: Limited study, abundant bowel gas No pelvic mass noted
--- NOTE | 2025-07-18 16:04 | PD.EDRME ---
Rapid Medical Screening Exam RME Arrival date/time: 07/18/25 15:26 59-year-old female with a history of hypertension and a hysterectomy presents to the emergency room with a chief complaint of left pelvic pain and vaginal bleeding x 3 days I have greeted and performed a focused initial assessment of this patient. A comprehensive ED assessment and evaluation of the patient, analysis of all test results, and completion of the medical decision making process will be conducted by additional ED providers. Chief Complaint: Vaginal Bleeding Time Seen by Provider: 07/18/25 15:33 Vital signs: Vital Signs Temperature 98.2 F 07/18/25 15:57 Pulse Rate 79 07/18/25 15:57 Respiratory Rate 16 07/18/25 15:57 Blood Pressure 102/70 07/18/25 15:57 Pulse Oximetry (%) 97 07/18/25 15:57 Oxygen Delivery Method Room Air 07/18/25 15:57 Vital signs reviewed by provider: Yes Exam: Left lower quadrant abdominal tenderness with palpation Clear bilateral lung sounds Clinical Impression: Uterine fibroids/ovarian cyst/vaginal bleeding
[2025-07-18 16:43] LABS: Basophils # (Auto) 0.1 Thou/mm3 (0.0-0.2); Basophils % (Auto) 1 % (0-2.5); Eosinophils # (Auto) 0.7 Thou/mm3 (0.0-0.5); Eosinophils % (Auto) 7 % (0-10); Hematocrit 47.1 % (36.0-46.0); Hemoglobin 15.7 g/dL (12.0-16.0); Immature Granulocytes Auto 0.05 Thou/mm3 (0.00-0.00); Lymphocytes # (Auto) 2.6 Thou/mm3 (1.0-4.8); Lymphocytes % (Auto) 26 % (10-50); Mean Corpuscular HGB Conc 33.3 g/dl (31.0-37.0); Mean Corpuscular Hemoglobin 27.1 pg (25.0-35.0); Mean Corpuscular Volume 81 fL (80-100); Monocytes # (Auto) 0.8 Thou/mm3 (0.0-0.8); Monocytes % (Auto) 8 % (0-12); Neutrophils # (Auto) 5.6 Thou/mm3 (1.8-7.7); Neutrophils % (Auto) 58 % (37-80); Nucleated Red Blood Cell # 0.00 Thou/mm3 (0.00-0.00); Nucleated Red Blood Cell % 0 /100 WBC (0); Platelet Count 253 Thou/mm3 (140-440); RDW Standard Deviation 38.3 fL (36.4-46.3); Red Blood Count 5.79 Miln/mm3 (4.00-5.20); White Blood Count 9.8 Thou/mm3 (3.6-11.0)
[2025-07-18 17:11] LABS: INR 1.0 (0.9-1.3); Partial Thromboplastin Time 29.5 Seconds (22.0-36.0); Prothrombin Time 10.4 Seconds (9.0-12.2)
[2025-07-18 17:14] LABS: Alanine Aminotransferase 30 U/L (10-49); Albumin, Serum 4.8 gm/dL (3.5-5.0); Albumin/Globulin Ratio 1.7 (1.2-2.2); Alkaline Phosphatase 86 U/L (46-116); Anion Gap 9 (7-16); Aspartate Amino Transferase 26 U/L (0-34); BUN/Creatinine Ratio 9 Ratio (12-20); Bilirubin,Total 0.4 mg/dL (0.3-1.2); Blood Urea Nitrogen 8 mg/dL (9-23); Calcium 9.6 mg/dL (8.3-10.6); Calcium (Corrected) 9.6 mg/dL (8.5-10.1); Carbon Dioxide 29.5 mMol/L (20.0-31.0); Chloride 101 mMol/L (98-107); Creatinine (Component) 0.9 mg/dL (0.6-1.3); Estimated Creatinine Clearance 84.7 mL/min (>60); Globulin 2.8 gm/dL (2.3-3.5); Glucose 112 mg/dL (74-106); Osmolality,Calculated 276 (275-295); Potassium 4.5 mMol/L (3.4-5.1); Sodium 139 mMol/L (136-145); Total Protein 7.6 gm/dL (5.7-8.2); eGFR > 60 See Note
[2025-07-18 20:18] VITALS: BP 113/77; PULSE 72; RESP 17; TEMP 36.7; O2SAT 97
--- NOTE | 2025-07-18 20:26 | PD.EDVAGBL ---
ED OB Contraction Preg RMI/HPI General Chief complaint: Vaginal Bleeding Stated complaint: vag bleed Time Seen by Provider: 07/18/25 15:33 Arrival date/time: 07/18/25 15:26 Limitations: no limitations RME / HPI RME / HPI Narrative: 07/18/25 15:26 59-year-old female with a history of hypertension and a hysterectomy presents to the emergency room with a chief complaint of left pelvic pain and vaginal bleeding x 3 days I have greeted and performed a focused initial assessment of this patient. A comprehensive ED assessment and evaluation of the patient, analysis of all test results, and completion of the medical decision making process will be conducted by additional ED providers. Dr. Vázquez's Main ED Evaluation: 59yo female presents to the ED for complaints of pelvic cramping and vaginal bleeding x yesterday. Patient states she started noticing some blood when she was using the restroom. She endorses having a hysterectomy 8 years ago. She denies any fever, chills, N/V, or any other associated symptoms. Related Data Home Medications ?Medication ?Instructions ?Recorded ?Confirmed pioglitazone 30 mg tablet (Actos) 15 mg PO QDAY #0 tabs 08/09/16 01/05/18 losartan 50 mg tablet 25 mg PO BID 11/27/17 01/07/18 Previous Rx's ?Medication ?Instructions ?Recorded furosemide 20 mg tablet (Lasix) 20 mg PO QAM Fluid overload #7 tabs 11/04/22 potassium chloride 10 mEq 10 meq PO QDAY #7 tabs 11/04/22 tablet,extended release nirmatrelvir 300 mg (150 mg See Rx Instructions PO .COMPLEX 06/07/23 x2)-ritonavir 100 mg tablet,dose #30 tabs pack (Paxlovid) ibuprofen 800 mg tablet 800 mg PO TID PRN pain #30 tabs 07/11/23 ondansetron 4 mg disintegrating 4 mg PO Q8H PRN nausea and 02/08/24 tablet vomiting #20 tabs pantoprazole 40 mg tablet,delayed 40 mg PO QDAY #20 tabs 06/25/25 release (Protonix) Allergies Allergy/AdvReac Type Severity Reaction Status Date / Time morphine Allergy Severe Hives Verified 07/18/25 15:29 Review of Systems Review of Systems Systems Reviewed: All systems reviewed, normal except as documented ED Exam General Limitations: Present no limitations General appearance: Present alert and in no apparent distress Head Head exam: Present atraumatic Eye Eye exam: Present normal appearance, PERRL and EOMI ENT ENT exam: Present normal exam, normal oropharynx and mucous membranes moist Neck Neck exam: Present normal inspection, full ROM and trachea midline Chest Chest inspection: Present normal inspection and symmetric chest wall rise Respiratory Respiratory exam: Present normal lung sounds bilaterally Cardiovascular Cardiovascular exam: Present regular rate, normal rhythm and normal heart sounds Abdominal Exam Abdominal exam: Present soft; Absent tenderness External exam: Present normal external exam; Absent tenderness Speculum exam: Present normal speculum exam; Absent vaginal discharge, vaginal bleeding or other (tenderness, masses) Extremities Exam Extremities exam: Present normal inspection and full ROM Back Exam Back exam: Present normal inspection and full ROM Neurological Exam Neurological exam: Present alert, oriented X3 and CN II-XII intact Psychiatric Psychiatric exam: Present normal affect and normal mood Skin Skin exam: Present warm, dry, intact and normal color Course Quality Measures none Orders Category Date Time Status Pelvic Exam X1 Care 07/18/25 20:24 Active US pelvic complete Stat Exams 07/18/25 16:04 Completed CBC Stat Lab 07/18/25 16:21 Completed CMP [Comprehensive Metabolic Panel] Stat Lab 07/18/25 16:21 Completed PT [Prothrombin Time with INR] Stat Lab 07/18/25 16:21 Completed PTT [Partial Thromboplastin Time] Stat Lab 07/18/25 16:21 Completed UA [Urinalysis] Stat Lab 07/18/25 20:28 Completed Urine Culture Stat Lab 07/18/25 22:01 Ordered Vital Signs Vital signs: Vital Signs Temperature 98.2 F 07/18/25 15:57 Pulse Rate 79 07/18/25 15:57 Respiratory Rate 16 07/18/25 15:57 Blood Pressure 102/70 07/18/25 15:57 Pulse Oximetry (%) 97 07/18/25 15:57 Oxygen Delivery Method Room Air 07/18/25 15:57 Vaginal Bleeding MDM Narrative MDM Narrative: Scribe Attestation: 07/18/25 - Danelle Dobson am scribing for and in the presence of Dr. Vázquez. Patient data External records reviewed:: [facility] previous records (Per chart review, patient was seen here on 06/25/25 for chest pain.) Clinical information provided by:: patient Social determinants that could affect healthcare access:: none Patient has the following chronic illnesses:: HTN How is presenting disease/condition affected by chronic disease/condition?: uneffected by Evaluation data The following diagnostics were reviewed and interpreted by me:: lab results and radiology exam(s) Lab and/or radiology exams considered but not ordered:: none Interpretation Summary: WBC normal, HnH 15.7/47.1, PT/INR/PTT normal, CMP normal. [facility] Report Signed Patient: CHANDA GONZALEZ Record#: [id number] Birthdate: 1965 Age/Sex: 59 / F Location: [facility] Attending Dr: Ordering Physician: Donnell Espinal Date of Service: 07/18/25 Procedure(s): US pelvic complete Accession Number(s): [id number] cc: Donnell Espinal; Jose J Enriquez MD; Zacarias Morejon MD~ Examination: Pelvic ultrasound, transabdominal, complete Technique: Transabdominal ultrasound of the pelvis performed using grayscale imaging Date and time of exam: July 18, 2025, 1716 hours INDICATIONS: Pelvic pain 1 year FINDINGS: Absent uterus Ovaries not visualized Abundant bowel gas IMPRESSION: Limited study, abundant bowel gas No pelvic mass noted Dictated By: Zacarias Morejon MD Signed By: <Electronically signed by Zacarias Morejon MD in OV> 07/18/25 1810 Medications / Prescriptions Medications or Prescriptions considered but not ordered:: none Medication administrations:: none Consultations Consultation(s) initiated? (list below): No Diagnosis Vaginal Bleeding Differential Diagnosis: other (irregular vaginal bleeding, menopause, doubt kidney stone) Most likely diagnosis given after review of the tests above:: see clinical impression below Admission Indicated Admission indicated?: not indicated Admission Request Was there a request for admission?: No Disposition Plan Disposition Plan: Discharge Discharge Attestation Discharge Attestation: The patient and all family members were given an opportunity to ask questions and understood the discharge instructions. Discharge instructions specifically effects, indications for sooner follow up or return to the emergency department, and the expected course of current diagnosis. Patient condition: Stable Discharge Plan Plan Patient Disposition: HOME (Self Care) Prescriptions/Referrals Prescriptions/Med Rec: No Action pioglitazone [Actos] 15 MG tablet 15 mg PO QDAY Qty: 0 losartan 50 mg Tablet 25 mg PO BID ibuprofen 800 mg tablet 800 mg PO TID PRN (Reason: pain) Qty: 30 0RF ondansetron 4 mg tablet,disintegrating 4 mg PO Q8H PRN (Reason: nausea and vomiting) Qty: 20 0RF pantoprazole [Protonix] 40 mg tablet,delayed release (DR/EC) 40 mg PO QDAY Qty: 20 0RF furosemide [Lasix] 20 mg tablet 20 mg PO QAM Qty: 7 0RF potassium chloride 10 mEq tablet extended release 10 meq PO QDAY Qty: 7 0RF Paxlovid 300 mg (150 mg x 2)-100 mg tablets,dose pack See Rx Instructions .ROUTE .COMPLEX Qty: 30 0RF Rx Instructions: take TWO 150 mg tablets of nirmatrelvir with ONE 100 mg tablet of ritonavir twice daily for 5 days Referrals: Jose J Enriquez MD [Primary Care Provider, Family Practice] - In 1 week Problem List Clinical Impression: Abnormal vaginal bleeding Patient/Caregiver Discharge Instructions Education Materials: ED Dysfunctional Uterine Bleeding Additional Instructions: You will need to follow-up with your primary care so that you can get referral for dysfunctional vaginal bleeding, if needed. Please return to emergency department for worsening symptoms, you are wearing a pad and have to change it more than 2 or 3 times an hour, you have any fever, or any other concerns. You can take [id number] Tylenol 650 mg 3 times a day for the next few days. It does not appear that you have a urinary tract infection however you do have some bacteria. I will not treat you for UTI right now however I will send a urine culture. You will need to follow-up with your primary care in the next 72 hours to get the results of the urine. Print Language: Bengali Stand Alone Forms: Katie Award Info., Patient Portal Info Letter
[2025-07-18 20:50] LABS: Collection Type, Urine Clean Catch
[2025-07-18 21:03] LABS: Bilirubin,Urine Negative (Negative); Blood,Urine Negative (Negative); Clarity,Urine Clear (Clear/Hazy); Color,Urine Lt-Yellow (Lt Yel-Yel); Glucose, Urine 4+ (Negative); Ketones,Urine Negative (Negative); Leukocyte Esterase,Urine Positive (Negative); Nitrite,Urine Negative (Negative); PH,Urine 6.0 (5.0-7.0); Protein,Urine Negative (Neg - Trace); RBC,Urine 1 /hpf (0-3); Specific Gravity,Urine 1.006 (1.001-1.035); Squamous Epithelial Cell,Urine 4 /hpf (0-5); Urobilinogen,Urine Negative mg/dL (0.0-1.0); WBC,Urine 3 /hpf (0-5)
[2025-07-18 22:10] VITALS: BP 116/76; PULSE 76; RESP 16; TEMP 36.7; O2SAT 98
== END 2025-07-18 22:12 | disposition home or self-care (01) ==
PROVIDERS: Nurse Practitioner Family; Emergency Provider Emergency Medicine; PCP Family Medicine
DX: N93.9 Abnormal uterine and vaginal bleeding, unspecified (principal); R14.3 Flatulence
CPT/HCPCS: 36415; 76856; 80053; 81001; 85025; 85610; 85730; 87086; 99283